=== PATIENT | male | born 1975 | race Caucasian/White ===

== ENCOUNTER 2016-07-04 08:57 | Emergency (ER) | payer OTHER ==
--- NOTE | 2016-07-04 09:31 | UC ---
Dizzy HPI HPI Summary: 41 yo male awoke this am feeling dizzy. States it feels like he has been driving for a long time and has motion sickness mild spinning sensation/disequilibrium no headache no tinnitis no ear pain no ringing or roaring in ears no URI symptoms no CP or SOB or palpitations He has crohn's disease had flare last week on low dose prednisone has noted no blood in stool about two episodes of diarrhea/day no f/c no crampy abd pain - History Of Current Complaint Chief Complaint: UCDizziness Stated Complaint: dizziness Time Seen by Provider: 07/04/16 09:09 Hx Obtained From: Patient Onset/Duration: Gradual Onset, Lasting Hours Timing: Constant Severity Initially: Mild Severity Currently: Mild Pain Intensity: 0 Pain Scale Used: 0-10 Numeric Character: Room Spinning - mild Aggravating Factor(s): Nothing Alleviating Factor(s): Nothing Associated Signs And Symptoms: Positive: Change In Medication - on low dose prednisone. Negative: Nausea, Vomiting, Diaphoresis, Tinnitus, Chest Pain, SOB , Palpitations, Unsteady Gait, Visual Changes, Decreased Oral Intake, Change In Diet - Allergies/Home Medications Allergies/Adverse Reactions: Allergies Allergy/AdvReac Type Severity Reaction Status Date / Time No Known Allergies Allergy Verified 06/03/12 14:04 Home Medications: Home Medications Adalimumab [Humira] 07/04/16 [History] Prednisone 1 tab PO DAILY 07/04/16 [History Confirmed 07/04/16] PMH/Surg Hx/FS Hx/Imm Hx Previously Healthy: Yes Endocrine History Of: Denies: Diabetes, Thyroid Disease Cardiovascular History Of: Denies: Cardiac Disorders, Hypertension, Congestive Heart Failure Respiratory History Of: Denies: COPD, Asthma GI/ History Of: Denies: Ulcer, Renal Disease - Surgical History Surgical History: Yes Surgery Procedure, Year, and Place: anal fissure x2, colonoscopy, [place] teeth extraction - Family History Known Family History: Positive: Other - hypothyoidism - Social History Alcohol Use: Rare Substance Use Type: Marijuana Substance Use Comment - Amount & Last Used: every day Smoking Status (MU): Former Smoker Length of Time of Smoking/Using Tobacco: for a short period in his 20's - Immunization History Most Recent Influenza Vaccination: 2016/2016 season Review of Systems Constitutional: Negative Skin: Negative Eyes: Negative ENT: Negative Respiratory: Negative Cardiovascular: Negative Gastrointestinal: Negative Genitourinary: Negative Motor: Negative Neurovascular: Negative Musculoskeletal: Negative Neurological: Other - dizziness Psychological: Negative All Other Systems Reviewed And Are Negative: Yes Physical Exam Triage Information Reviewed: Yes Appearance: Well-Appearing, No Pain Distress, Well-Nourished, Thin Vital Signs: Initial Vital Signs Temp 98 F 07/04/16 09:02 Pulse 58 07/04/16 09:02 Resp 18 07/04/16 09:02 BP 132/76 07/04/16 09:02 Pulse Ox 100 07/04/16 09:02 Vital Signs Reviewed: Yes Eyes: Positive: Conjunctiva Clear ENT: Positive: Hearing grossly normal, Pharynx normal, TMs normal. Negative: Pharyngeal erythema, Nasal congestion, Nasal drainage, TM bulging, TM dull, TM red, Tonsillar swelling, Tonsillar exudate, Trismus, Muffled/hoarse voice Dental: Negative: Gross Decay/Caries @, Abscess @ Neck: Positive: Supple, Nontender, No Lymphadenopathy Respiratory: Positive: Lungs clear, Normal breath sounds, No respiratory distress, No accessory muscle use Cardiovascular: Positive: RRR, No Murmur. Negative: Tachycardia Abdomen Description: Positive: Nontender, No Organomegaly, Soft. Negative: CVA Tenderness (R), CVA Tenderness (L) Bowel Sounds: Positive: Present Musculoskeletal: Positive: ROM Intact, No Edema Neurological: Positive: Alert, Muscle Tone Normal. Negative: Fatigued Psychological Exam: Normal Skin Exam: Normal Diagnostics - EKG Cardiac Rate: Bradycardia Cardiac Rhythm: Sinus: Normal Ectopy: None ST Segment: Normal Dizzy Course/Dx - Course Course Of Treatment: (-) orthostatics - Differential Dx/Diagnosis Provider Diagnoses: dizziness of uncertain cause Discharge - Discharge Plan Condition: Stable Disposition: HOME Prescriptions: Meclizine TAB* [Antivert TAB*] 25 mg PO TID PRN #20 tab PRN Reason: Dizziness Patient Education Materials: Dizziness (ED) Referrals: Priti Gonzalez NP [Primary Care Provider] - 3 Days (if not better) Additional Instructions: rest fluids recheck for new or worsening symptoms
[2016-07-04 09:46] VITALS: BP 138/81
[2016-07-04 12:47] LABS: BUN/Creatinine Ratio 15.7 (8-20); Calcium 9.3 mg/dL (8.6-10.3); EGFR African American 132.6 (>60); EGFR Non-African American 103.1 (>60); Potassium 4.1 mmol/L (3.5-5.0)
[2016-07-04 12:53] LABS: Hematocrit 40 % (42-52); Hemoglobin 13.5 g/dl (14.0-18.0); Mean Corpuscular HGB Conc 33 g/dl (31-36); Mean Corpuscular Hemoglobin 30 pg (27-31); Mean Corpuscular Volume 88 fL (80-94); Mean Platelet Volume 9 um3 (7.4-10.4); Red Blood Count 4.57 10^6/ul (4.0-5.4); Red Cell Distribution Width 14 % (10.5-15); White Blood Count 4.7 10^3/ul (3.5-10.8)
== END 2016-07-04 09:58 | disposition home or self-care (01) ==
LOC: UCEAST 08:57
DX: R42 Dizziness and giddiness (principal); D64.9 Anemia, unspecified; R00.1 Bradycardia, unspecified; F12.90 Cannabis use, unspecified, uncomplicated; Z87.891 Personal history of nicotine dependence
CPT/HCPCS: 36415; 80048; 81003; 85025; 93005; 99212; G0463

== ENCOUNTER 2019-05-04 21:27 | Emergency (ER) | payer OTHER ==
--- NOTE | 2019-05-04 22:17 | ED ---
HPI Chest Pain - HPI Summary HPI Summary: 44 year old male presents to the ED with a chief complaint of left chest wall pain secondary to playing [employer] earlier today. Patient was knocked over when he was kicked by his opponent, who then fell on top of his chest. He reports that its painful to breathe in deeply, but he does not have difficulty breathing. He did not lose consciousness and denies head trauma. History of Crohn's disease. - History of Current Complaint Chief Complaint: EDChestWallPain Time Seen by Provider: 05/04/19 21:59 Hx Obtained From: Patient Onset/Duration: Started Minutes Ago, Traumatic, Still Present Timing: Constant Initial Severity: Moderate Current Severity: Moderate Pain Intensity: 7 Pain Scale Used: 0-10 Numeric Chest Pain Location: Discrete at:, Left Anterior Chest Pain Radiates: No Character: Dull/Aching Aggravating Factor(s): Deep Breaths Associated Signs and Symptoms: Positive: Chest Pain - Allergy/Home Medications Allergies/Adverse Reactions: Allergies Allergy/AdvReac Type Severity Reaction Status Date / Time No Known Allergies Allergy Verified 05/04/19 21:29 PMH/Surg Hx/FS Hx/Imm Hx Endocrine/Hematology History: Denies: Hx Diabetes, Hx Systemic Lupus Erythematosus, Hx Thyroid Disease Cardiovascular History: Denies: Hx Congestive Heart Failure, Hx Hypertension Respiratory History: Denies: Hx Asthma, Hx Chronic Obstructive Pulmonary Disease (COPD) GI History: Reports: Hx Irritable Bowel, Other GI Disorders - IBS ANOREXIA Denies: Hx Ulcer History: Denies: Hx Dialysis, Hx Renal Disease Musculoskeletal History: Denies: Hx Rheumatoid Arthritis - Cancer History Hx Chemotherapy: No - Surgical History Surgery Procedure, Year, and Place: anal fissure x2, colonoscopy, [place] teeth extraction Infectious Disease History: No Infectious Disease History: Denies: Hx Hepatitis, Hx Human Immunodeficiency Virus (HIV), History Other Infectious Disease, Traveled Outside the [place] in Last 30 Days - Family History Known Family History: Positive: Other - hypothyoidism - Social History Alcohol Use: Rare Substance Use Type: Reports: Marijuana Substance Use Comment - Amount & Last Used: every day Hx Tobacco Use: Yes Smoking Status (MU): Former Smoker Length of Time of Smoking/Using Tobacco: for a short period in his 20's Review of Systems Negative: Fever Positive: Myalgia Negative: Syncope All Other Systems Reviewed And Are Negative: Yes Physical Exam - Summary Physical Exam Summary: Constitutional: Well-developed, Well-nourished, Alert. (-) Distressed Skin: Warm, Dry HENT: Normocephalic; Atraumatic Eyes: Conjunctiva normal Neck: Musculoskeletal ROM normal neck. (-) JVD, (-) Stridor, (-) Tracheal deviation Cardio: Rhythm regular, rate normal, Heart sounds normal; Intact distal pulses; The pedal pulses are 2+ and symmetric. Radial pulses are 2+ and symmetric. Pulmonary/Chest wall: Effort normal. (-) Respiratory distress, (-) Wheezes, (-) Rales. No tenderness on posterior chest wall. Caudal margin of left anterior chest wall to midline tenderness. Tenderness goes from parasternal to midclavical, across mamilary line. No contusions to the lung. Abd: Soft, (-) tenderness, (-) Distension, (-) Guarding, (-) Rebound Musculoskeletal: (-) Edema Neuro: Alert, Oriented x3 Psych: Mood and affect Normal Triage Information Reviewed: Yes Vital Signs On Initial Exam: Initial Vitals Temp Pulse Resp BP Pulse Ox 98 F 100 18 127/89 98 05/04/19 21:29 05/04/19 21:29 05/04/19 21:29 05/04/19 21:29 05/04/19 21:29 Vital Signs Reviewed: Yes Procedures - Sedation Patient Received Moderate/Deep Sedation with Procedure: No Diagnostics - Vital Signs Vital Signs Temp Pulse Resp BP Pulse Ox 05/04/19 21:29 98 F 100 18 127/89 98 - Laboratory Lab Statement: Any lab studies that have been ordered have been reviewed, and results considered in the medical decision making process. - Radiology CXR Radiology Interpretation Completed By: Radiologist Summary of Radiographic Findings: No acute findings. An ED physician has reviewed this scan. - EKG 2226 Cardiac Rate: NL - 73 bpm EKG Rhythm: Sinus Rhythm ST Segment: Normal Ectopy: None Summary of EKG Findings: EKG at 2226 shows normal sinus rhythm at 73 bpm. No STEMI. Sinus arrythmia. An ED physician has reviewed this EKG. Chest Pain Course/Dx - Course Course Of Treatment: 44 year old male presents to the ED with a chief complaint of left chest wall pain secondary to playing [employer] earlier today. Patient was knocked over when he was kicked by his opponent, who then fell on top of his chest. He reports that its painful to breathe in deeply, but he does not have difficulty breathing. He did not lose consciousness and denies head trauma. History of Crohn's disease. Physical exam shows tenderness to the chest wall from the parasternal, across the mamilary line to the midclavical. No contusions to the lung. CXR: No acute findings. Diagnosis is chest wall pain. Patient understands the diagnosis and agrees with plan to discharge. - Diagnoses Provider Diagnoses: Chest wall contusion Discharge ED - Sign-Out/Discharge Documenting (check all that apply): Patient Departure - dc home - Discharge Plan Condition: Stable Disposition: HOME Patient Education Materials: Chest Wall Pain (ED) Referrals: Priti Gonzalez NP [Primary Care Provider] - Additional Instructions: Follow up with your PCP in 2-3 days. Return to the ED if you experience new or worsened pain. - Billing Disposition and Condition Condition: STABLE Disposition: Home - Attestation Statements Document Initiated by Re: Yes Documenting Scribe: Damian Pagan Provider For Whom Re is Documenting (Include Credential): Rikki Singh MD Scribe Attestation: Damian Cabrales scribed for Rikki Singh MD on 05/05/19 at 0637. Scribe Documentation Reviewed: Yes Provider Attestation: The documentation as recorded by the Damian vaz accurately reflects the service I personally performed and the decisions made by me, Rikki Singh MD Status of Scribe Document: Viewed
[2019-05-04 23:34] VITALS: BP 120/78
== END 2019-05-04 23:30 | disposition home or self-care (01) ==
LOC: ED 21:27
DX: S20.212A Contusion of left front wall of thorax, initial encounter (principal); W50.1XXA Accidental kick by another person, initial encounter; Y93.75 Activity, martial arts; Y92.9 Unspecified place or not applicable
CPT/HCPCS: 36415; 71046; 84484; 93005; 99282